=== PATIENT | female | born 1945 | race Caucasian/White ===

== ENCOUNTER 2018-09-10 16:36 | Emergency (ER) | payer MEDICARE, BC ==
[~2018-09-10] VITALS: Ht 167.6 cm; Wt 90.2 kg
[2018-09-10 16:40] VITALS: BP 180/75
--- NOTE | 2018-09-10 17:45 | NUR ---
RIGHT FOREARM WRAPPED WITH DENIS WRAP CAP REFILL WNL TO RIGHT FINGERS: REGULAR RADUAL PULSES
== END 2018-09-10 17:48 | disposition home or self-care (01) ==
LOC: ER 16:37
DX: S50.11XA Contusion of right forearm, initial encounter (principal); M25.561 Pain in right knee; M25.562 Pain in left knee; I10 Essential (primary) hypertension; F17.200 Nicotine dependence, unspecified, uncomplicated; W19.XXXA Unspecified fall, initial encounter; Y93.89 Activity, other specified; Y92.89 Other specified places as the place of occurrence of the external cause; Y99.8 Other external cause status
CPT/HCPCS: 99284